=== PATIENT | male | born 2000 | race Caucasian/White ===

== ENCOUNTER 2025-02-26 12:07 | Emergency (ER) | payer MEDICAID, SELFPAY ==
[2025-02-26 12:09] VITALS: BP 136/87; PULSE 62; TEMP 36.8; O2SAT 100; BMI 20.5
--- NOTE | 2025-02-26 12:17 | PC.NURSE ---
area of complain presents like a bony area at the base of finger, ROM at joints of finger wnl, color wnl, skin intact and with no redness or bruising
--- OUTSIDE RECORDS SUMMARY | 2025-02-26 12:20 | XMS_ITS | Clinical Summary ---
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 Use prednisone for inflammation. Use sudafed or other decongestants as needed. Use Robitussin or Robitussin-DM for cough. Can use afrin for congestion but no longer than 3 days. Can use Mucinex to bring up phlegm. Use Motrin or Tylenol as needed for fever, aches, or pains. Increase fluid intake and rest. Should improve over next 5-7 days and if no better or worse call for re- evaluation. Heart murmur 08/12/2024 Resolved Problems Problem Noted Date Diagnosed Date Resolved Date Elevated blood-pressure read ing without diagnosis of hypertension 08/12/2024 10/27/2024 Acute non-recurrent pansinusitis 08/12/2024 10/27/2024 Assessment & Plan (08/12/2024 3:19 PM EST): Take antibiotics BID for 10 days. Use prednisone for inflammation. Use sudafed or other decongestants as needed. Use Robitussin or Robitussin-DM for cough. Can use afrin for congestion but no longer than 3 days. Can use Mucinex to bring up phlegm. Use Motrin or Tylenol as needed for fever, aches, or pains. Increase fluid intake and rest. Should improve over next 5-7 days and if no better or worse call for re-evaluation. Social History Tobacco Use Types Packs/Day Years Used Date Smoking Tobacco: Never Smokeless Tobacco: Never Tobacco Cessation:Counseling Given: Not Answered Sex and Gender Information Value Date Recorded Sex Assigned at Not on file Legal Sex Male 7:22 AM EDT Gender Identity Not on file Sexual Orientation Not on file Last Filed Vital Signs Vital Sign Reading Time Taken Comments Blood Pressure 100/64 10/27/2024 10:52 AM EST Pulse 105 10/27/2024 10:52 AM EST Temperature 37.3 C (99.1 F) 10/27/2024 10:52 AM EST Respiratory Rate 18 08/12/2024 2:54 PM EST Oxygen Saturation 97% 10/27/2024 10:52 AM EST Inhaled Oxygen Concentration - - Weight 58.5 kg (129 lb) 10/27/2024 10:52 AM EST Height 167.6 cm (5' 6 ) 08/12/2024 2:54 PM EST Body Mass Index 20.82 08/12/2024 2:54 PM EST Plan of Treatment Health Maintenance Due Date Last Done Comments Influenza Vaccine (Season Ended) 2025 06/12/20 08, 09/23/2004 Insurance [employer] [place]ICA[place] Care Teams Pipe Finisher Relationship Specialty Start Date End Date Mario Calderón MD [address] [place] [address] PCP - General Family Medicine 08/12/24
--- NOTE | 2025-02-26 12:34 | XR_ITS ---
The [address] [address] Patient Name: JAC ORANTES MRN: [id number] date: 2000 Sex: M Assigned Patient Location: ER Current Patient Location: ER Accession/Order Number: [id number] Exam Date: 02/26/2025 13:42 Report Date: 02/26/2025 13:42 At the request of: SOUTH VAN MD Procedure: XR hand LT min 3V LEFT HAND - 3 views REASON FOR EXAM: Lump distal fourth metacarpal region. COMPARISON: None FINDINGS: No focal soft tissue abnormality. No acute bony process is seen. Joint spaces appear maintained. No bony erosions. XR/XR hand LT min 3V IMPRESSION: NO ACUTE BONY PROCESS. Impression dictated by: Sukhdeep Peterson Jr. DJulio COJulio C 02/26/2025 1:42 PM Dictation Location: [place] [address] Electronically authenticated by: [id number] Y Date: 02/26/2025 13:42
--- NOTE | 2025-02-26 12:35 | ED.GENADUL1 ---
HPI HPI - General Adult General Chief complaint: Extremity Problem, Nontraumatic Stated complaint: L HAND ABCESS PAIN Time Seen by Provider: 02/26/25 12:30 Source: patient Mode of arrival: walk-in History of Present Illness HPI narrative: 24-year-old male presents to the emergency department for a chief complaint of feeling a bump on his left hand. He points to the fourth finger flexor side MCP joint area. Noticed it last week and there was no injury. He is left-handed. Related Data Allergies Allergy/AdvReac Type Severity Reaction Status Date / Time No Known Drug Allergies Allergy Verified 02/26/25 12:14 Review of Systems ROS Narrative A ten point review of systems is negative except as noted above. PFSH PFSH Social History Little interest or pleasure in doing things: not at all Feeling down, depressed, or hopeless: not at all Exam Narrative Exam Narrative: Nurses note and vital signs reviewed and patient is not hypoxic. General: The patient appears well and in no apparent distress. Patient is resting comfortably on cart. Skin: Warm, dry, no pallor noted. There is no rash noted. Head: Normocephalic, atraumatic Eye: Normal conjunctiva, no drainage Ears, Nose, Mouth, and Throat: oral mucosa is moist. Nares patent. Cardiovascular: Regular Rate and Rhythm Respiratory: Patient is in no distress, no accessory muscle use GI: Soft and nontender Musculoskeletal: The left hand is examined. There is no erythema bruising or rash and all of his fingers have full range of motion. Palpation of the fourth finger MCP joint area on the flexor side does not seem to reveal any unusual masses. Neurological: A&O, normal speech Psychiatric: Cooperative Constitutional Vital Signs, click to edit/add: Last Vital Signs Temp 98.2 F 02/26/25 12:09 Pulse 62 02/26/25 12:09 Resp 18 02/26/25 12:09 BP 136/87 02/26/25 12:09 Pulse Ox 100 02/26/25 12:09 O2 Del Method Room Air 02/26/25 12:09 Course Vital Signs Vital signs: Vital Signs Temperature 98.2 F 02/26/25 12:09 Pulse Rate 62 02/26/25 12:09 Respiratory Rate 18 02/26/25 12:09 Blood Pressure 136/87 02/26/25 12:09 Pulse Oximetry 100 02/26/25 12:09 Oxygen Delivery Method Room Air 02/26/25 12:09 Temperature 98.2 F 02/26/25 12:09 Pulse Rate 62 02/26/25 12:09 Respiratory Rate 18 02/26/25 12:09 Blood Pressure 136/87 02/26/25 12:09 Pulse Oximetry 100 02/26/25 12:09 Oxygen Delivery Method Room Air 02/26/25 12:09 Medical Decision Making MDM Narrative Medical decision making narrative: X-ray is negative. The possibility that this is a ganglion cyst was discussed with the patient and he is referred to orthopedics. Treatment diagnosis and follow-up were discussed with the patient. Differential Diagnosis Differential Diagnosis: Bone spur, bone cyst, ganglion cyst Imaging Data Left hand x-ray: Radiologist's impression: ITS Impressions Hand X-Ray 02/26/25 12:34 IMPRESSION: NO ACUTE BONY PROCESS. Impression dictated by: Sukhdeep Peterson Jr., D.O. 02/26/2025 1:42 PM Dictation Location: [place] [address] Electronically authenticated by: [id number] Y Date: 02/26/2025 13:42 Discharge Plan Discharge Chief Complaint: Extremity Problem, Nontraumatic Clinical Impression: Mass of finger of left hand Patient Disposition: Home, Self-Care Time of Disposition Decision: 14:09 Condition: Good Mode of Transportation: Private Vehicle Print Language: Citizen Of [place] Instructions: Ganglion Cyst (ED) Referrals: Mario Calderón MD [Primary Care Provider, Family Practice] - 1 week ALCON FLETCHER [Referring]
== END 2025-02-26 14:18 | disposition home or self-care (01) ==
PROVIDERS: Emergency Provider Emergency Medicine; PCP Family Medicine
DX: R22.32 Localized swelling, mass and lump, left upper limb (principal)
CPT/HCPCS: 73130; 99283